=== PATIENT | male | born 1960 | race Caucasian/White ===

== ENCOUNTER 2017-04-29 14:36 | Day surgery (SDC) | payer OTHER ==
[2017-04-29] MEDS ORDERED: Phenylephrine 10 mg/ml Inj ONE (15:09)
[2017-04-29] MEDS ORDERED: Iodixanol 320 MG/ML 100 ML BOTTLE IV ONE (15:10)
[2017-04-29] MEDS ORDERED: Nitroglycerin 50mg in D5W 50 MG/250 ML BOTTLE IV ONE (15:10)
[2017-04-29] MEDS ORDERED: Iohexol 350mgl/ml 50 ML ONE (15:10)
[2017-04-29] MEDS ORDERED: Iodixanol 320 MG/ML 200 ML BOTTLE IV ONE (15:10)
[2017-04-29] MEDS ORDERED: Midazolam 2 MG/2 ML VIAL ONE (15:36)
[2017-04-29] MEDS ORDERED: Lidocaine 2% Inj (20ml) ONE (16:47)
[2017-04-29] MEDS ORDERED: Bacitracin 500 Units/gm Oint Foilpak UD TOP ONE (17:42)
[2017-04-29] MEDS ORDERED: Sodium Chloride 0.9% 1,000 ML IV SCH (17:45)
[2017-04-29 18:36] VITALS: TEMP 98.1
[2017-04-29 19:17] VITALS: BP 106/65; PULSE 77; RESP 18
--- NOTE | 2017-04-30 10:14 | CARDCATH ---
PROCEDURE DATE: 04/29/2017 PROCEDURES: 1. Left circumflex coronary angioplasty and drug-eluting stent placement. 2. Obtuse marginal artery balloon angioplasty. CLINICAL INDICATIONS: 1. Angina. 2. Hyperlipidemia. 3. Hypertension. 4. Abnormal stress test. REFERRING PHYSICIAN: 1. Dr. Chuy De La Rosa. 2. DrMinerva *------*. PROCEDURE: After informed consent, the patient was prepped and draped in the usual sterile fashion. 2% lidocaine was given in the right wrist for local anesthesia. Using micropuncture technique, 6-inch sheath was introduced into the radial artery. The patient was preloaded with aspirin, Plavix and IV heparin. ACT was maintained above 250. Left main coronary artery was engaged using XB3.56F guide catheter. Initial angiogram has confirmed 99% stenosis of the mid left circumflex coronary artery. There was BEATA-2 flow noted distally. This lesion was threaded using Runthrough coronary wire. The lesion was predilated using 2.5 x 12 compliant balloon. Stented with 2.75 x 18 XIENCE Alpine drug-eluting stent. Obtuse marginal 1 ostial stenosis was treated with 2.0 x 12 balloon angioplasty. Excellent final angiographic results with brisk BEATA 3 flow noted. CONCLUSION: 1. Successful coronary intervention of the left circumflex and obtuse marginal artery. 2. Stage intervention of right coronary artery after 2 to 4 weeks. Patient will be transferred to [facility] for further management. Blayne Perez MD
== END 2017-04-29 22:34 | disposition short-term general hospital (02) ==
LOC: CATH 14:36 → 2RSO 18:09 → CATH 22:34
PROVIDERS: ATTEND Internal Medicine Cardiovascular Disease
DX: I25.119 Atherosclerotic heart disease of native coronary artery with unspecified angina pectoris (principal); R94.39 Abnormal result of other cardiovascular function study; I10 Essential (primary) hypertension; E78.5 Hyperlipidemia, unspecified; F17.210 Nicotine dependence, cigarettes, uncomplicated; Z79.82 Long term (current) use of aspirin; Z79.899 Other long term (current) drug therapy
CPT/HCPCS: 92921; 93454; 99152; 85175; 99153; C9600 ×2; C1725 ×2; C1769 ×2; C1874; C1887; J1644 ×2; J2250; J3010; J7040 ×2; Q9967 ×2

== ENCOUNTER 2017-05-07 07:30 | Day surgery (SDC) | payer OTHER ==
[2017-05-07] MEDS ORDERED: DiphenhydrAMINE 50 mg/ml Inj ONE (09:05)
[2017-05-07] MEDS ORDERED: Famotidine 20mg/50ml 20 MG/50 ML BAG IVPB ONE (09:05)
[2017-05-07] MEDS ORDERED: Lidocaine 2% Inj (20ml) ONE (09:10)
[2017-05-07] MEDS ORDERED: Iohexol 350mgl/ml 50 ML ONE (09:10)
[2017-05-07] MEDS ORDERED: Midazolam 2 MG/2 ML VIAL ONE (09:54)
[2017-05-07] MEDS ORDERED: Nitroglycerin 50mg in D5W 50 MG/250 ML BOTTLE IV ONE (09:55)
[2017-05-07] MEDS ORDERED: Iohexol 350 MG/100 ML VIAL ONE (10:40)
[2017-05-07] MEDS ORDERED: Sodium Chloride 0.9% 1,000 ML IV SCH (11:15)
[2017-05-07 11:25] VITALS: RESP 16
[2017-05-07 13:58] VITALS: BP 127/72; PULSE 63
--- NOTE | 2017-05-07 17:23 | CARD ---
APPROVED REPORT EKG Measurement Heart [id number] <Conclusion> Sinus bradycardia Otherwise normal ECG
--- NOTE | 2017-05-07 20:40 | CARDCATH ---
PROCEDURE DATE: 05/07/2017 PROCEDURES: 1. Right coronary artery angioplasty and bare metal stent placement. 2. Left coronary angiogram. CLINICAL INDICATIONS: 1. Unstable angina. 2. History of coronary artery disease status post left circumflex stent. 3. Hypertension. 4. Hyperlipidemia. 5. History of tobacco use. REFERRING PHYSICIANS: 1. Dr. Tre Ugalde. 2. Dr. Maximliian Romeo. PROCEDURE: After informed consent, the patient was prepped and draped to the usual sterile fashion. The patient was premedicated with Benadryl, Solu-Medrol and IV Pepcid for history of contrast allergic reaction. Using micro puncture technique, 6-Portuguese sheath was introduced into the right common femoral artery. The patient was given Brilinta, aspirin and IV heparin. ACT was maintained above 250 throughout the procedure. Right coronary artery was engaged using JR4 6-Portuguese guide catheter with side holes. Initial angiogram has confirmed. Distal RCA has 95%-98% stenosis with BEATA 2 flow. The lesion was threaded using a whisper coronary wire. Predilated using 2.5 x 15 compliant balloon, stented with 2.75 x 28 vision bare metal stent. Excellent final angiographic results with just BEATA 3 flow noted. CONCLUSION: 1. Successful right coronary artery intervention with bare metal stent. 2. Left coronary angiogram has revealed patent prior left complex stent. RECOMMENDATIONS: Since patient has a drug eluding stent in the left circumflex coronary artery recently, recommend continue Brilinta for 1 year. Continue aspirin, statins and beta-lobo for rest of the life. The patient will followup with Dr. Tre Ugalde for cardiology as outpatient. Blayne Perez MD
== END 2017-05-07 14:19 | disposition short-term general hospital (02) ==
LOC: CATH 07:30 → 2RSO 11:10 → CATH 14:19
PROVIDERS: ATTEND Internal Medicine Cardiovascular Disease
DX: I25.110 Atherosclerotic heart disease of native coronary artery with unstable angina pectoris (principal); I10 Essential (primary) hypertension; E78.5 Hyperlipidemia, unspecified; Z87.891 Personal history of nicotine dependence
CPT/HCPCS: 85175; 92928; 93005; 93454; 99152; 99153; C1725; C1760; C1769 ×3; C1876; C1887 ×2; C1894; J1200; J1644 ×2; J2250; J2930; J3010; J7030; J7040 ×2; Q9967 ×3